=== PATIENT | male | born 1930 | race Caucasian/White ===

== ENCOUNTER 2019-07-27 23:52 | Emergency (ER) | payer OTHER ==
[~2019-07-27] VITALS: Ht 167.6 cm; Wt 78.9 kg
[~2019-07-27 23:52] MED LIST: CLOP75TA15 PO; DOXA1TAB2 PO; LISI10TA5 PO
--- NOTE | 2019-07-27 23:55 | NUR ---
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 PT AOX3. NAD NOTED. PT ON MONITOR IN BED 4 WITH FAMILY AT BEDSIDE. WILL CONTINUE TO MONITOR.
--- NOTE | 2019-07-28 00:50 | NUR ---
TECH AT BEDSIDE FOR EKG
--- NOTE | 2019-07-28 00:53 | NUR ---
PHLEB AT BEDSIDE FOR BLOOD DRAW
--- NOTE | 2019-07-28 00:57 | NUR ---
RADIOLOGY AT BEDSIDE FOR XRAY
[2019-07-28] MEDS ORDERED: ALBUTEROL FS 2.5 MG/0.5 ML VIAL.NEB NEB ONE (01:00)
[2019-07-28] MEDS ORDERED: predniSONE 50 MG TABLET PO ONE (01:00)
[2019-07-28] MEDS ORDERED: IPRATROPIUM NEB FS 0.5 MG/2.5 ML AMPUL.NEB NEB ONE (01:00)
[2019-07-28 01:01] LABS: BASOPHILS # (AUTO) 0.1 /CMM (0.0-0.2); BASOPHILS % (AUTO) 0.8 % (0.0-2.0); EOSINOPHILS % (AUTO) 5.9 % (0.0-6.0); HEMATOCRIT 30 % (39-51); HEMOGLOBIN 9.9 g/dL (13.5-17.5); LYMPHOCYTES # (AUTO) 0.9 /CMM (0.8-4.8); LYMPHOCYTES % (AUTO) 8.9 % (20.0-44.0); MEAN CORPUSCULAR HGB CONC 33 g/dl (31.0-36.0); MEAN CORPUSCULAR VOLUME 94 fL (80-96); MONOCYTES # (AUTO) 1.4 /CMM (0.1-1.30); MONOCYTES % (AUTO) 14.7 % (2.0-12.0); NEUTROPHILS # (AUTO) 6.9 /CMM (1.8-8.9); NEUTROPHILS % (AUTO) 69.7 % (43.0-81.0); PLATELET COUNT (AUTO) 250 /CMM (150-450); RED BLOOD CELL COUNT(AUTO) 3.16 MIL/uL (4.5-6.0); WHITE BLOOD COUNT (AUTO) 9.8 K/uL (4.3-11.0)
[2019-07-28] MEDS ORDERED: ALBUTEROL FS 2.5 MG/0.5 ML VIAL.NEB ONE (01:09)
[2019-07-28] MEDS ORDERED: IPRATROPIUM NEB FS 0.5 MG/2.5 ML AMPUL.NEB ONE (01:09)
[2019-07-28 01:10] LABS: CALCIUM, SERUM 9.3 mg/dL (8.5-10.1); CARBON DIOXIDE 33 mmol/L (21-32); CHLORIDE 97 mmol/L (98-107); GLUCOSE 123 mg/dL (74-106); POTASSIUM 4.1 mmol/L (3.5-5.1); SODIUM SERUM 134 mmol/L (136-145); UREA NITROGEN, BLOOD 50 mg/dL (7-18)
[2019-07-28] MEDS ORDERED: predniSONE 20 MG TABLET ONE (01:11)
[2019-07-28 01:23] LABS: B-TYPE NATRIURETIC PEPTIDE 6707 PG/ML (0-125)
[2019-07-28] MEDS ORDERED: FUROSEMIDE 40 MG/4 ML VIAL IV ONE (02:00)
[2019-07-28] MEDS ORDERED: ASPIRIN 325 MG TABLET PO ONE (02:00)
--- NOTE | 2019-07-28 02:01 | NUR ---
[facility] CALLED
[2019-07-28] MEDS ORDERED: ASPIRIN 325 MG TABLET ONE (02:05)
[2019-07-28] MEDS ORDERED: FUROSEMIDE 40 MG/4 ML VIAL ONE (02:05)
[2019-07-28 02:34] LABS: ABG OXYGEN SATURATION 93.8 % (92.0-98.5); ABG PCO2 67.2 mmHg (35.0-45.0); ABG PO2 83.9 mmHg (75.0-100.0); AaDO2 211.6 mmHg; COHb 0.6 % (0.5-1.5); MetHb 0.4 % (0.0-1.5); O2Hb 92.9 % (94.0-97.0); SITE, ABG Right Radial
--- NOTE | 2019-07-28 03:02 | NUR ---
RT AT BEDSIDE TO INITIATE BI-PAP
[2019-07-28 03:52] LABS: ABG BASE EXCESS 3.5 mmol/L; ABG OXYGEN SATURATION 94.8 % (92.0-98.5); ABG PCO2 64.4 mmHg (35.0-45.0); ABG PO2 91.3 mmHg (75.0-100.0); AaDO2 192.8 mmHg; COHb 0.3 % (0.5-1.5); MetHb 0.4 % (0.0-1.5); O2Hb 94.1 % (94.0-97.0); SITE, ABG Right Radial
--- NOTE | 2019-07-28 05:18 | NUR ---
[facility]. ADMIT TO [place] THROUGH ER. # FOR REPORT: [phone]. DR Stewart BERNSTEIN ACCEPTING HOSPITALIST. CCRT 6AM PICKUP.
[2019-07-28 05:40] VITALS: BP 115/89
--- NOTE | 2019-07-28 05:40 | NUR ---
REPORT GIVEN TO HALLIE [employer] FOR [facility]
--- NOTE | 2019-07-28 06:38 | NUR ---
PT PICKED UP BY [facility]
== END 2019-07-28 06:39 | disposition short-term general hospital (02) ==
LOC: ER 23:58
DX: I11.0 Hypertensive heart disease with heart failure (principal); I50.9 Heart failure, unspecified; R00.0 Tachycardia, unspecified; J45.909 Unspecified asthma, uncomplicated; Z85.46 Personal history of malignant neoplasm of prostate; Z90.89 Acquired absence of other organs; Z88.8 Allergy status to other drugs, medicaments and biological substances; Z88.6 Allergy status to analgesic agent; Z79.899 Other long term (current) drug therapy; Z88.9 Allergy status to unspecified drugs, medicaments and biological substances
CPT/HCPCS: 36415; 36600 ×3; 71045; 80048; 82803; 83880; 84484; 85025; 93005; 94644; 94660; 96374; 99291; J1940; J7512